=== PATIENT | male | born 1975 | race Caucasian/White ===

== ENCOUNTER 2019-02-24 17:03 | Emergency (ER) | payer MEDICAID ==
[~2019-02-24] VITALS: Ht 167.6 cm; Wt 113.4 kg
[2019-02-24] MEDS ORDERED: NKM (17:17)
--- NOTE | 2019-02-24 17:23 | NUR ---
ED Nurse Note: Pt came into the ER w/ complaints of [id number] cough x 2 weeks. Pt has no fever. Pt stated that he produces phlegm of all sorts of color when he coughs. Pt is complaining of 7/10 chest pain whenever he coughs. Pt has no medical hx. Pt is A + O x4. Ambulatory. Skin warm to touch.
[2019-02-24 17:24] VITALS: BP 116/64
[2019-02-24] MEDS ORDERED: Albuterol/Ipratropium 3ml neb HHN ONE (17:30)
[2019-02-24] MEDS ORDERED: Acetaminophen 500mg (ES) tab ORAL ONE (17:30)
--- NOTE | 2019-02-24 17:32 | NUR ---
ED Nurse Note: RT at the bedside.
[2019-02-24] MEDS ORDERED: guaiFENesin 100mg/5ml Liq ud ORAL ONE (17:45)
--- NOTE | 2019-02-24 17:50 | NUR ---
ED Nurse Note: Xray at the bedside.
--- NOTE | 2019-02-24 17:56 | Emergency Room Report ---
History of Present Illness General Chief Complaint: Upper Respiratory Illness Source: Patient Present Illness HPI Is a 43-year-old male presents after increased cough and congestion for approximately 2 weeks. Patient reports of gradual onset of symptoms. He reported having some fever over the past few days. He reported increased work of breathing. He denies taking any medications for asthma. He had previously been in a drug program. Patient had prior history of heroin abuse. He was last on steroids several years ago.Patient denies any sore throat. He reports having some vocal changes due to persistent coughing. Allergies: Coded Allergies: No Known Allergies (Unverified , 02/24/19) Patient History Reviewed Nursing Documentation: PMH: Agreed; PSxH: Agreed Nursing Documentation-PMH Past Medical History: No Stated History Review of Systems All Other Systems: negative except mentioned in HPI Physical Exam Vital Signs Date Time Temp Pulse Resp B/P (MAP) Pulse Ox O2 Delivery O2 Flow Rate FiO2 02/24/19 17:12 98.4 69 19 120/68 93 Room Air 02/24/19 17:24 95 General Appearance: well appearing, no apparent distress, alert, GCS 15, obese Head: normocephalic, atraumatic ENT: hearing grossly normal, normal voice Neck: full range of motion, supple Respiratory: speaking full sentences, wheezing Cardiovascular #1: normal inspection, no edema Gastrointestinal: normal inspection Musculoskeletal: normal inspection, back normal, digits/nails normal, no calf tenderness Neurologic: normal inspection, alert, oriented x3, responsive, normal gait Psychiatric: mood/affect normal Skin: no rash Medical Decision Making Diagnostic Impression: Primary Impression: Bronchitis ER Course Patient presented for cough and difficulty breathing. Differential diagnosis include was not limited to bronchitis, pneumonia, COPD, pulmonary embolism among others. Patient has a benign exam and does not appear to require any laboratory testing at this time. Patient was given oral steroids as well as breathing treatments. Patient is noted to have normal oxygen saturation. Patient was noted to have market improvement in air movement after medications. Chest x-ray one view interpreted by me showed normal cardiac size without evident infiltrate Last Vital Signs Date Time Temp Pulse Resp B/P (MAP) Pulse Ox O2 Delivery O2 Flow Rate FiO2 02/24/19 17:48 70 21 99 Room Air 02/24/19 17:34 21 02/24/19 17:24 98.3 116/64 Status: improved Referrals: NON PHYSICIAN (PCP) Jer Robert MD Feb 24, 2019 17:56
--- NOTE | 2019-02-24 18:21 | NUR ---
ED Nurse Note: Notified RT of order.
--- NOTE | 2019-02-24 18:24 | NUR ---
ED Nurse Note: RT at the bedside.
[2019-02-24] MEDS ORDERED: Albuterol ud Inhalation HHN ONE (18:30)
[2019-02-24] MEDS ORDERED: GUAIFENESIN DM118 M1 ORAL (18:46)
[2019-02-24] MEDS ORDERED: ALBUTEROL SULF8.5 GM INH (18:46)
[2019-02-24] MEDS ORDERED: PREDNISONE20 MG ORAL (18:46)
[2019-02-24 18:52] VITALS: BP 114/64
--- NOTE | 2019-02-24 18:53 | NUR ---
ER DISCHARGE NOTE: Patient is cleared to be discharged per ERMD, pt is aox4, on room air, with stable vital signs. pt was given dc and prescription instructions, pt was able to verbalize understanding, pt id band removed without complications. pt is able to ambulate with steady gait. pt took all belongings.
--- NOTE | 2019-02-25 12:38 | Diagnostic Imaging Report ---
Indication: Shortness of breath Technique: One view of the chest Comparison: none Findings: Body habitus limits evaluation. The lungs and pleural spaces are clear. The heart size is upper limits of normal Impression: No acute process
== END 2019-02-24 18:53 | disposition home or self-care (01) ==
LOC: EMR 17:44
DX: J20.9 Acute bronchitis, unspecified (principal); E66.9 Obesity, unspecified; Z68.41 Body mass index [BMI] 40.0-44.9, adult
CPT/HCPCS: 71045; 94640; 94664; 99284; J7512; J7620

== ENCOUNTER 2019-04-14 10:10 | Emergency (ER) | payer MEDICAID ==
[~2019-04-14] VITALS: Ht 167.6 cm; Wt 113.4 kg
[~2019-04-14 10:10] MED LIST: ALBUTEROL SULF8.5 GM INH; GUAIFENESIN DM118 M1 ORAL; NKM; PREDNISONE20 MG ORAL
[2019-04-14 10:24] VITALS: BP 124/89
--- NOTE | 2019-04-14 10:27 | NUR ---
ED Nurse Note: Pt came in from home due to allergic reactions to unknown trigger, pt experienced facial swelling and hives x "a couple of hours prior to arrival" No tounge swelling or throat swelling noted. Also c/o mild SOB, SAT 98% RA carina. Vital signs stable. Will cont to monitor.
--- NOTE | 2019-04-14 11:01 | Emergency Room Report ---
History of Present Illness General Chief Complaint: Allergic Reaction Source: Patient Present Illness HPI 43-year-old male presents ED for evaluation. Walked in complaining of a rash to his body which started this morning. States he also felt tongue swelling. States that he thought it was an allergic reaction and took 2 Benadryl prior to arrival. Denies any shortness of breath. Denies any known food or drug allergies. However patient states that he did smoke cigarette this morning and states that a few years ago he had a similar reaction after smoking a cigarette. States that he also moved into this apartment recently. No other aggravating relieving factors. Denies any other associated symptoms Allergies: Coded Allergies: No Known Allergies (Unverified , 02/24/19) Patient History Past Medical History: none Past Surgical History: none Pertinent Family History: none Social History: Denies: smoking, alcohol use, drug use Immunizations: UTD Reviewed Nursing Documentation: PMH: Agreed; PSxH: Agreed Nursing Documentation-PMH Past Medical History: No Stated History Review of Systems All Other Systems: negative except mentioned in HPI Physical Exam Vital Signs Date Time Temp Pulse Resp B/P (MAP) Pulse Ox O2 Delivery O2 Flow Rate FiO2 04/14/19 10:14 98.1 87 17 108/81 (90) 90 Room Air Sp02 EP Interpretation: reviewed, normal General Appearance: no apparent distress, alert, GCS 15, non-toxic, obese Head: normocephalic, atraumatic Eyes: bilateral eye normal inspection, bilateral eye PERRL ENT: hearing grossly normal, normal pharynx, no angioedema, normal voice Neck: full range of motion, supple/symm/no masses, other - no stridor Respiratory: chest non-tender, lungs clear, normal breath sounds, speaking full sentences Cardiovascular #1: regular rate, rhythm, no edema Cardiovascular #2: 2+ carotid (R), 2+ carotid (L), 2+ radial (R), 2+ radial (L) , 2+ dorsalis pedis (R), 2+ dorsalis pedis (L) Gastrointestinal: normal bowel sounds, non tender, soft, non-distended, no guarding, no rebound Rectal: deferred Genitourinary: normal inspection, no CVA tenderness Musculoskeletal: back normal, gait/station normal, normal range of motion, non- tender Neurologic: alert, oriented x3, responsive, motor strength/tone normal, sensory intact, speech normal Psychiatric: judgement/insight normal, memory normal, mood/affect normal, no suicidal/homicidal ideation Reflexes: 3+ bicep (R), 3+ bicep (L), 3+ tricep (R), 3+ tricep (L), 3+ knee (R) , 3+ knee (L) Skin: normal color, warm/dry, well hydrated, rash - papular diffuse rash to body. nonerythematous base Lymphatic: no adenopathy Medical Decision Making Diagnostic Impression: Primary Impression: Rash ER Course Hospital Course 43-year-old male presents to ED complaining of tongue swelling and rash. took benedryl prior to arrival Differential diagnoses include: allergic reaction, anaphylaxis, angioedema Clinical course Patient placed on stretcher. Initial history physical exam reveals middle-aged male in no acute distress. There is a fine papular rash diffusely to the body. No erythematous base. Does not appear urticarial. No stridor no tongue swelling. Lungs clear. Patient took Benadryl prior to arrival. Given Pepcid and prednisone here. Patient describes a prior reaction after smoking in the past and did smoke earlier today. Possibility for allergic reaction but rash does appear more consistent with insect bite/bedbugs. Patient states he did move into a new apartment. Safe for discharge with close outpatient follow-up. Will defer both bedbugs and allergic reaction. Recommend senior software architect as outpatient. Will provide PMD referrals i. I feel this is a highly complex case requiring extensive working including EKG/Rhythm strip, Xray/CT/US, Blood/urine lab work, repeat exams while in ED, and administration of strong opiates/narcotics for pain control, admission to hospital or close patient follow up. Diagnosis - rash Stable and discharged to home with prescriptions for keflex, Zantac, prednisone , Benadryl. Followup with PMD. Return to ED if symptoms recur or worsen Last Vital Signs Date Time Temp Pulse Resp B/P (MAP) Pulse Ox O2 Delivery O2 Flow Rate FiO2 04/14/19 10:24 98.1 92 20 124/89 98 Room Air Status: improved Disposition: HOME, SELF-CARE Condition: Stable Scripts Diphenhydramine Hcl* (DIPHENHYDRAMINE HCL*) 25 Mg Capsule 25 MG ORAL Q6H PRN for Itching for 5 Days, #30 CAP 0 Refills Prov: Navi Kuhn MD 04/14/19 Cephalexin* (KEFLEX*) 500 Mg Capsule 500 MG ORAL EVERY 6 HOURS for 7 Days, CAP Prov: Navi Kuhn MD 04/14/19 Ranitidine Hcl* (ZANTAC*) 150 Mg Tablet 150 MG ORAL TWICE A DAY for 5 Days, #30 TAB Prov: Navi Kuhn MD 04/14/19 Prednisone* (PREDNISONE*) 20 Mg Tablet 40 MG ORAL DAILY, #10 TAB Prov: Navi Kuhn MD 04/14/19 Referrals: NON PHYSICIAN (PCP) Navi Kuhn MD Apr 14, 2019 11:01
[2019-04-14] MEDS ORDERED: DIPHENHYDRAMINE25 M1 ORAL (11:21)
[2019-04-14] MEDS ORDERED: RANITIDINE HCL150 MG ORAL (11:21)
[2019-04-14] MEDS ORDERED: PREDNISONE20 MG ORAL (11:21)
[2019-04-14] MEDS ORDERED: CEPHALEXIN500 MG ORAL (11:21)
[2019-04-14 11:28] VITALS: BP 124/89
== END 2019-04-14 11:28 | disposition home or self-care (01) ==
LOC: EMR 10:31
DX: R21 Rash and other nonspecific skin eruption (principal); F17.210 Nicotine dependence, cigarettes, uncomplicated
CPT/HCPCS: 99282; J7512